=== PATIENT | female | born 1970 | race Caucasian/White ===

== ENCOUNTER 2020-05-28 09:12 | Emergency (ER) | payer OTHER ==
[~2020-05-28] VITALS: Ht 160 cm; Wt 74.8 kg
[2020-05-28 10:16] VITALS: BP 139/77
== END 2020-05-28 10:17 | disposition home or self-care (01) ==
LOC: M.ERS 09:12
DX: J30.9 Allergic rhinitis, unspecified (principal); Z20.828 Contact with and (suspected) exposure to other viral communicable diseases